=== PATIENT | male | born 1945 | race Caucasian/White ===

== ENCOUNTER 2019-10-05 10:13 | Emergency (ER) | payer MEDICARE, OTHER, SELFPAY ==
--- NOTE | ~2019-10-05 | XR_ITS ---
EXAMINATION: XR chest 2V DATE: 10/05/2019 11:02 INDICATION: Decreased breath sounds. TECHNIQUE: Frontal and lateral views of the chest were obtained. COMPARISON: Chest 2 views 08/21/2008, chest CT 08/22/2008 FINDINGS: A calcified left lung nodule is consistent with old granulomatous disease. There is mild at electasis at left lung base. No pleural effusion or pneumothorax. There are multiple old healed left rib fractures. The heart size is normal. IMPRESSION: 1. Mild atelectasis at left lung base. Reviewed, dictated and finalized at location A. IFIED FINANCIAL PLANNER
[2019-10-05 10:31] VITALS: BP 129/69; PULSE 86; RESP 20; TEMP 36.6; O2SAT 98
--- NOTE | 2019-10-05 10:38 | ED.URI ---
HPI - URI/Sore Throat General Chief Complaint: Upper Respiratory Infection Stated Complaint: cough/runny nose/body aches Time Seen by Provider: 10/05/19 10:38 Source: patient and RN notes reviewed History of Present Illness HPI Narrative: Patient is a 74-year-old male that presents the urgent care with complaints of cough, body aches, runny nose. Patient states his symptoms started last Wednesday and he has been taking a couple doses of Tylenol for the symptoms. Patient denies any known fever but states he has felt nauseous. Patient does have a history of pneumonia and states that his cough is productive cream-colored . Patient currently denies of any shortness of breath. States that he has had new intermittent chest pains . Patient states that the last episode was this morning. Patient states that there short and sharp without any radiation. No other acute complaints. No acute distress noted. Patient read the plan of care. Related Data Home Medications Medication Instructions Recorded Confirmed amlodipine-benazepril 1 cap PO DAILY 10/05/19 10/05/19 cilostazol 100 mg PO BID 10/05/19 10/05/19 insulin aspart U-100 [Novolog See Protocol SUBCUT TID 10/05/19 10/05/19 U-100 Insulin aspart] insulin glargine [Lantus U-100 33 unit SUBCUT DAILY 10/05/19 10/05/19 Insulin] latanoprost 1 drp OPHTHALMIC (EYE) DAILY 10/05/19 10/05/19 pyridostigmine bromide 60 mg PO QID 10/05/19 10/05/19 simvastatin mg 10/05/19 Allergies Allergy/AdvReac Type Severity Reaction Status Date / Time No Known Allergies Allergy Verified 10/05/19 10:26 Review of Systems Review of Systems: Narrative: CONSTITUTIONAL: Reports a fever EYES: Denies visual changes, redness, or discharge. ENT: Denies rhinorrhea, congestion, sore throat, or otalgia. CARDIOVASCULAR: Reports of intermittent left-sided chest pain without palpitations or edema RESPIRATORY: Reports a productive cough without wheezing or dyspnea GASTROINTESTINAL: Denies abdominal pain, nausea, vomiting, or diarrhea. GENITOURINARY: Denies dysuria or hematuria. SKIN: Denies rash or itching. MUSCULOSKELETAL: Denies back pain, joint pain, or myalgia. NEUROLOGIC: Denies headache, numbness, or weakness. All other systems reviewed are negative, except as documented in HPI. PMFSH Comments At the time of my signature, I reviewed and agree with the nursing past medical, surgical, social, and family history. There is no relevant family history pertinent to the patient complaint. Exam Narrative: Exam Narrative: GENERAL: This is a well-nourished, well-developed patient, appears very fatigued HEAD: normocephalic, atraumatic. EYES: PERRL. Sclera clear/white. Vision is grossly intact. EARS: External ears normal, auditory canals clear and without drainage, TMs normal without perforation. Hearing grossly intact. NOSE: External nose normal with no obvious nasal discharge, nares without redness, clear rhinorrhea. THROAT: Mucous membranes moist, posterior pharynx clear. NECK: Neck supple CARDIOVASCULAR: Regular rate and rhythm without murmurs, gallops, or rubs. RESPIRATORY: Clear to auscultation. Slightly diminished bibasilar. No wheezes, rales, or rhonchi. SKIN: warm, intact with no suspicious lesions or rash, good texture and turgor. NEURO: awake, alert, and oriented to person, place and time. There were no obvious focal neurologic abnormalities. EXTREMITIES: No clubbing, cyanosis, or edema. Course Vital Signs Vital signs: Vital Signs Temperature 97.9 F 10/05/19 10:31 Pulse Rate 86 10/05/19 10:31 Respiratory Rate 10/05/19 10:31 Blood Pressure 129/69 10/05/19 10:31 Pulse Oximetry 98 10/05/19 10:31 Temperature 97.9 F 10/05/19 10:31 Pulse Rate 86 10/05/19 10:31 Respiratory Rate 10/05/19 10:31 Blood Pressure 129/69 10/05/19 10:31 Pulse Oximetry 98 10/05/19 10:31 Reviewed Transfer Transfered to: [place] [facility]: Other (Patient was just to go via private car.)
--- NOTE | 2019-10-05 11:57 | ECG_ITS ---
Measurements Intervals [place] Rate: 88 P: 45 AL: 225 QRS: -26 QRSD: 93 T: 61 QT: 359 QTc: 436 Interpretive Statements SINUS RHYTHM WITH FIRST DEGREE AV BLOCK EARLY PRECORDIAL R/S TRANSITION BORDERLINE ST-T WAVE ABNORMALITY- LATERAL LEADS ABNORMAL ECG Electronically Signed On 10-05-2019 12:20:02 PERSONNEL MONITOR by Oh Lucas D.O.
== END 2019-10-05 11:33 | disposition short-term general hospital (02) ==
PROVIDERS: Emergency Provider Nurse Practitioner Family
DX: R07.9 Chest pain, unspecified (principal); I44.0 Atrioventricular block, first degree; E11.9 Type 2 diabetes mellitus without complications
CPT/HCPCS: 71046; 87804; 93005; 99213; G0463

== ENCOUNTER 2019-10-05 12:08 | Emergency (ER) | payer MEDICARE, OTHER, SELFPAY ==
--- NOTE | ~2019-10-05 | US_ITS ---
EXAMINATION: US venous doppler LE EXAM DATE: 10/05/2019 15:22 INDICATION: Bilateral leg swelling. TECHNIQUE: Multiple grayscale, color flow and Doppler images of the lower extremity deep venous syste ms bilaterally were obtained and reviewed. There is no prior study for comparison. FINDINGS: Right side: The right common femoral, femoral and profunda veins demonstrate normal color flow, respi ratory variation, augmentation and compressibility. Compressibility, color flow confirmed within the right popliteal, posterior tibial, peroneal, and greater saphenous veins. Left side: The left common femoral, femoral and profunda veins demonstrate normal color flow, respira tory variation, augmentation and compressibility. Compressibility, color flow confirmed within the l eft popliteal, posterior tibial, peroneal, and greater saphenous veins. IMPRESSION: 1. No lower extremity deep venous thrombosis bilaterally. Reviewed, dictated and finalized at location B. RAM EVALUATOR
[2019-10-05 12:19] VITALS: BP 107/56; PULSE 91; RESP 19; TEMP 37; O2SAT 98
--- NOTE | 2019-10-05 12:23 | ECG_ITS ---
Measurements Intervals [place] Rate: 80 P: 47 MN: 231 QRS: -13 QRSD: 80 T: 57 QT: 349 QTc: 405 Interpretive Statements SINUS RHYTHM WITH FIRST DEGREE AV BLOCK EARLY PRECORDIAL R/S TRANSITION NONSPECIFIC T-WAVE ABNORMALITY- LATERAL LEADS BASELINE ARTIFACT- I, III, AVL, V2 ABNORMAL ECG Electronically Signed On 10-05-2019 13:17:43 SECONDARY MARKET MANAGER by Oh Lucas D.O.
[2019-10-05 12:34] LABS: Basophils Absolute Auto 0.1 K/mm3 (0.0-0.1); Basophils Percent Auto 0.7 % (0.2-1.2); Eosinophils Absolute Auto 0.3 K/mm3 (0-0.3); Eosinophils Percent Auto 2.3 % (0-4.4); Hematocrit 41.3 % (42.0-52.0); Hemoglobin 13.7 g/dL (14.0-18.0); Immature Granulocyte Absolute 0.06 K/mm3 (0.00-0.031); Immature Granulocyte Percent A 0.5 % (0-0.5); Lymphocytes Absolute Auto 1.47 K/mm3 (0.9-3.2); Lymphocytes Percent Auto 12.1 % (18.3-44.2); Mean Corpuscular HGB Conc 33.2 g/dl (32-36); Mean Corpuscular Hemoglobin 29.7 pg (26-34); Mean Corpuscular Volume 89.6 fl (80-100); Mean Platelet Volume 9.7 fl (7.4-10.4); Monocytes Absolute Auto 1.2 K/mm3 (0.1-0.6); Monocytes Percent Auto 10.1 % (2.6-8.5); Neutrophils Percent Auto 74.3 % (45.5-73.1); Platelet Count Result 242 k/mm3 (150-375); Red Blood Count 4.61 M/mm3 (4.6-6.20); Red Cell Distribution Width 12.1 % (11.5-14.5); White Blood Count 12.1 K/mm3 (4.5-10.0)
[2019-10-05 12:51] LABS: Blood Urea Nitrogen 13 mg/dL (9-20); Calcium 8.7 mg/dL (8.4-10.2); Carbon Dioxide 24 mmol/L (22-30); Chloride 104 mmol/L (98-107); Estimated Glomerular Filt Rate > 60; Glucose 158 mg/dL (75-110); Potassium 4.6 mmol/L (3.4-5.0); Sodium 135 mmol/L (137-145)
[2019-10-05 14:10] VITALS: O2SAT 99
--- NOTE | 2019-10-05 14:44 | ED.URI ---
HPI - URI/Sore Throat General Chief Complaint: Upper Respiratory Infection Stated Complaint: Abnormal EKG at Urgent care Time Seen by Provider: 10/05/19 14:35 Source: patient Mode of arrival: ambulatory Limitations: no limitations History of Present Illness HPI Narrative: Pt is a 74 y/o male who presents to the ED with c/o cold like Sx for a week. He reports rhinorrhea, sore throat, and a productive cough. He also reports lt sided CP and SOB with exertion. His CP is not aggravated by anything. Pt reports lt leg swelling for several months that normally goes down when he raises it up. He denies a H/o a NC. Pt's flu test was negative at the . MD elicited complaint: cough, sore throat and rhinorrhea Onset (ago): week(s) (1) Exacerbating factors: nothing Relieving factors: nothing Associated symptoms: chest pain, shortness of breath and other (lt leg swelling) Related Data Home Medications Medication Instructions Recorded Confirmed amlodipine-benazepril 1 cap PO DAILY 10/05/19 10/05/19 cilostazol 100 mg PO BID 10/05/19 10/05/19 insulin aspart U-100 [Novolog See Protocol SUBCUT TID 10/05/19 10/05/19 U-100 Insulin aspart] insulin glargine [Lantus U-100 33 unit SUBCUT DAILY 10/05/19 10/05/19 Insulin] latanoprost 1 drp OPHTHALMIC (EYE) DAILY 10/05/19 10/05/19 pyridostigmine bromide 60 mg PO QID 10/05/19 10/05/19 simvastatin mg 10/05/19 Allergies Allergy/AdvReac Type Severity Reaction Status Date / Time No Known Allergies Allergy Verified 10/05/19 12:24 Review of Systems Review of Systems: All systems reviewed & are unremarkable except as noted in HPI and below ENT: Reports sore throat and Reports other (rhinorrhea) Cardiovascular: Cardiovascular: Reports chest pain and Reports leg edema (lt) Respiratory: Respiratory: Reports cough and Reports dyspnea on exertion PMF Past Medical History Medical History (Updated 10/05/19 @ 16:50 by Iain Redd MD) Diabetes mellitus Diabetic retinopathy Glaucoma HLD (hyperlipidemia) HTN (hypertension) Hypothyroid Myasthenia gravis Pneumonia Surgical History Surgical History (Updated 10/05/19 @ 15:19 by Kimber Bell) H/O bilateral cataract extraction H/O hand surgery History of cardiac catheterization Social History Social History (Updated 10/05/19 @ 15:19 by Kimber Bell) Smoking status: Former smoker Gender identity (if verbalized by the patient): Male Exam Narrative: Exam Narrative: GENERAL: Well-appearing, well-nourished, and in no acute distress. HEAD: Normocephalic, atraumatic. ENT: Mucous membranes moist. CHEST: Clear to auscultation. No respiratory distress. Mild anterior left chest wall pain. HEART: Regular rate and rhythm. Normal peripheral pulses. ABDOMEN: Soft, nontender, nondistended. EXTREMITIES: Normal range of motion. 2+ edema bilaterally without Homans sign. SKIN: Warm, dry, no rash. NEURO: Alert and oriented x3. Course Course Emergency Course: Patient informed of results. Pain improved with Toradol. Discharge home. Vital Signs Vital signs: Vital Signs Temperature 98.6 F 10/05/19 12:19 Pulse Rate 91 10/05/19 12:19 Respiratory Rate 19 10/05/19 12:19 Blood Pressure 107/56 L 10/05/19 12:19 Pulse Oximetry 98 10/05/19 12:19 Temperature 98.6 F 10/05/19 12:19 Pulse Rate 83 10/05/19 17:15 Respiratory Rate 12 10/05/19 17:15 Blood Pressure 128/59 L 10/05/19 17:15 Pulse Oximetry 96 10/05/19 17:15 MDM - URI/Sore Throat Lab Data Result diagrams: 10/05/19 12:29 10/05/19 12:29 Labs: Lab Results 10/05/19 10/05/19 10/05/19 Range/Units 12:29 12:29 15:55 WBC 12.1 H (4.5-10.0) K/mm3 RBC 4.61 (4.6-6.20) M/mm3 Hgb 13.7 L (14.0-18.0) g/dL Hct 41.3 L (42.0-52.0) % MCV 89.6 (80-100) fl MCH 29.7 (26-34) pg MCHC 33.2 (32-36) g/dl RDW 12.1 (11.5-14.5) % Plt Count 242 (150-375) k/mm3 MPV 9.7 (7.4-10.4) fl
[2019-10-05] MEDS: KETOROLAC 30 MG/ML VIAL (*BKC) IV PUSH (15:38)
[2019-10-05 16:23] LABS: Troponin I < 0.012 ng/mL (0.000-0.034)
[2019-10-05 17:15] VITALS: BP 128/59; PULSE 83; RESP 12; O2SAT 96
== END 2019-10-05 17:20 | disposition home or self-care (01) ==
PROVIDERS: Emergency Provider Emergency Medicine
DX: J06.9 Acute upper respiratory infection, unspecified (principal); R07.89 Other chest pain; E11.319 Type 2 diabetes mellitus with unspecified diabetic retinopathy without macular edema; H40.9 Unspecified glaucoma; I10 Essential (primary) hypertension; E78.5 Hyperlipidemia, unspecified; E03.9 Hypothyroidism, unspecified; G70.00 Myasthenia gravis without (acute) exacerbation; Z98.42 Cataract extraction status, left eye; Z98.41 Cataract extraction status, right eye; Z87.891 Personal history of nicotine dependence; Z79.4 Long term (current) use of insulin
CPT/HCPCS: 36415; 71046; 80048; 84484; 85025; 87804; 93005; 93970; 96374; 99284; J1885

== ENCOUNTER 2023-01-11 06:49 | Outpatient (CLI) | payer MEDICARE, OTHER, SELFPAY ==
[2023-01-11 08:00] LABS: Basophils Absolute Auto 0.1 K/mm3 (0.0-0.1); Basophils Percent Auto 1.2 % (0.2-1.2); Eosinophils Absolute Auto 0.4 K/mm3 (0-0.3); Eosinophils Percent Auto 4.7 % (0-4.4); Hematocrit 43.9 % (42.0-52.0); Hemoglobin 14.2 g/dL (14.0-18.0); Immature Granulocyte Absolute 0.06 K/mm3 (0.00-0.031); Immature Granulocyte Percent A 0.7 % (0-0.5); Lymphocytes Absolute Auto 2.02 K/mm3 (0.9-3.2); Lymphocytes Percent Auto 22.5 % (18.3-44.2); Mean Corpuscular HGB Conc 32.3 g/dl (32-36); Mean Corpuscular Volume 92.8 fl (80-100); Mean Platelet Volume 10.5 fl (7.4-10.4); Monocytes Absolute Auto 0.7 K/mm3 (0.1-0.6); Monocytes Percent Auto 7.6 % (2.6-8.5); Neutrophils Absolute Auto 5.7 K/mm3 (1.3-6.7); Neutrophils Percent Auto 63.3 % (45.5-73.1); Platelet Count Result 256 k/mm3 (150-375); Red Blood Count 4.73 M/mm3 (4.6-6.20); Red Cell Distribution Width 12.4 % (11.5-14.5)
[2023-01-11 08:16] LABS: Alanine Aminotransferase 18 U/L (6-50); Alkaline Phosphatase 73 U/L (38-126); Anion Gap 6 mmol/L (8-16); Aspartate Amino Transferase 23 U/L (17-59); Bilirubin,Total 0.4 mg/dL (0.2-1.3); Blood Urea Nitrogen 22 mg/dL (9-20); Calcium 8.4 mg/dL (8.4-10.2); Carbon Dioxide 24 mmol/L (22-30); Chloride 109 mmol/L (98-107); Cholesterol 139 mg/dL (0-200); Estimated Glomerular Filt Rate > 60; Glucose 133 mg/dL (65-110); HDL Direct 37 mg/dL; Potassium 4.1 mmol/L (3.4-5.0); Sodium 139 mmol/L (137-145); Triglycerides 76 mg/dL (<150)
[2023-01-11 08:27] LABS: LDL Cholesterol Direct 87 mg/dL
[2023-01-11 08:41] LABS: Hemoglobin A1C 7.2 % (<5.7)
[2023-01-11 08:46] LABS: Thyroid Stimulating Hormone 0.586 uIU/mL (0.465-4.680)
[2023-01-11 13:42] LABS: Creatinine Urine 71.7 mg/dL
[2023-01-11 13:47] LABS: MALB Creatinine Ratio 8.5 mg/g (0-30); Microalbumin Urine Random 6.1 mg/L (0-16.7)
[2023-01-14 14:33] LABS: PSA, Free 0.12 ng/mL; PSA, Total 0.5 ng/mL (<=4.0)
== END 2023-01-11 06:50 | disposition home or self-care (01) ==
LOC: ANHLAB 06:55
PROVIDERS: PCP Family Medicine; Visit Provider Family Medicine
DX: E78.2 Mixed hyperlipidemia (principal); G70.00 Myasthenia gravis without (acute) exacerbation; N40.1 Benign prostatic hyperplasia with lower urinary tract symptoms; E03.9 Hypothyroidism, unspecified; I10 Essential (primary) hypertension; E78.5 Hyperlipidemia, unspecified
CPT/HCPCS: 36415; 80053; 80061; 82043; 83036; 84153; 84154; 84443; 85025

== ENCOUNTER 2023-06-25 07:35 | Outpatient (CLI) | payer MEDICARE, OTHER, SELFPAY ==
[2023-06-25 08:44] LABS: Basophils Absolute Auto 0.1 K/mm3 (0.0-0.1); Eosinophils Absolute Auto 0.4 K/mm3 (0-0.3); Hematocrit 43.3 % (42.0-52.0); Immature Granulocyte Absolute 0.05 K/mm3 (0.00-0.031); Immature Granulocyte Percent A 0.7 % (0-0.5); Lymphocytes Absolute Auto 1.65 K/mm3 (0.9-3.2); Lymphocytes Percent Auto 23.4 % (18.3-44.2); Mean Corpuscular HGB Conc 32.3 g/dl (32-36); Mean Corpuscular Hemoglobin 29.6 pg (26-34); Mean Corpuscular Volume 91.5 fl (80-100); Monocytes Absolute Auto 0.6 K/mm3 (0.1-0.6); Monocytes Percent Auto 7.8 % (2.6-8.5); Neutrophils Absolute Auto 4.3 K/mm3 (1.3-6.7); Neutrophils Percent Auto 61.1 % (45.5-73.1); Platelet Count Result 194 k/mm3 (150-375); Red Blood Count 4.73 M/mm3 (4.6-6.20); Red Cell Distribution Width 12.4 % (11.5-14.5); White Blood Count 7.1 K/mm3 (4.5-10.0)
[2023-06-25 08:55] LABS: Alanine Aminotransferase 20 U/L (6-50); Albumin Level 4.3 g/dL (3.5-5.1); Alkaline Phosphatase 75 U/L (38-126); Anion Gap 9 mmol/L (8-16); Aspartate Amino Transferase 24 U/L (17-59); Bilirubin,Total 0.5 mg/dL (0.2-1.3); Blood Urea Nitrogen 20 mg/dL (9-20); Calcium 8.7 mg/dL (8.4-10.2); Carbon Dioxide 23 mmol/L (22-30); Chloride 110 mmol/L (98-107); Cholesterol 127 mg/dL (0-200); Estimated Glomerular Filt Rate > 60; Glucose 74 mg/dL (65-110); HDL Direct 36 mg/dL; Potassium 3.9 mmol/L (3.4-5.0); Sodium 142 mmol/L (137-145); Triglycerides 65 mg/dL (<150)
[2023-06-25 09:04] LABS: Hemoglobin A1C 7.1 % (<5.7)
[2023-06-25 09:06] LABS: LDL Cholesterol Direct 74 mg/dL
[2023-06-25 09:24] LABS: Prostate Specific Antigen 0.6 ng/mL (< OR = 4.0)
== END 2023-06-25 07:36 | disposition home or self-care (01) ==
LOC: ANHLAB 07:36
PROVIDERS: PCP Family Medicine; Visit Provider Physician Assistant
DX: E78.5 Hyperlipidemia, unspecified (principal); E11.9 Type 2 diabetes mellitus without complications; Z12.5 Encounter for screening for malignant neoplasm of prostate
CPT/HCPCS: 36415; 80053; 80061; 83036; 84153; 85025; G0103

== ENCOUNTER 2024-02-03 07:07 | Outpatient (CLI) | payer MEDICARE, OTHER, SELFPAY ==
[2024-02-03 07:46] LABS: Basophils Absolute Auto 0.1 K/mm3 (0.0-0.1); Basophils Percent Auto 0.8 % (0.2-1.2); Eosinophils Absolute Auto 0.3 K/mm3 (0-0.3); Eosinophils Percent Auto 3.5 % (0-4.4); Hematocrit 40.4 % (42.0-52.0); Hemoglobin 13.3 g/dL (14.0-18.0); Immature Granulocyte Absolute 0.03 K/mm3 (0.00-0.031); Immature Granulocyte Percent A 0.4 % (0-0.5); Lymphocytes Absolute Auto 1.56 K/mm3 (0.9-3.2); Lymphocytes Percent Auto 20.5 % (18.3-44.2); Mean Corpuscular HGB Conc 32.9 g/dl (32-36); Mean Corpuscular Hemoglobin 30.2 pg (26-34); Mean Corpuscular Volume 91.8 fl (80-100); Mean Platelet Volume 10.9 fl (7.4-10.4); Monocytes Absolute Auto 0.6 K/mm3 (0.1-0.6); Monocytes Percent Auto 7.8 % (2.6-8.5); Neutrophils Absolute Auto 5.1 K/mm3 (1.3-6.7); Platelet Count Result 200 k/mm3 (150-375); Red Cell Distribution Width 12.5 % (11.5-14.5); White Blood Count 7.6 K/mm3 (4.5-10.0)
[2024-02-03 07:57] LABS: Alanine Aminotransferase 15 U/L (6-50); Albumin Level 4.1 g/dL (3.5-5.1); Alkaline Phosphatase 81 U/L (38-126); Anion Gap 2 mmol/L (4-12); Aspartate Amino Transferase 23 U/L (17-59); Bilirubin,Total 0.5 mg/dL (0.2-1.3); Blood Urea Nitrogen 17 mg/dL (9-20); Calcium 8.6 mg/dL (8.4-10.2); Carbon Dioxide 23 mmol/L (22-30); Chloride 114 mmol/L (98-107); Cholesterol 122 mg/dL (0-200); Estimated Glomerular Filt Rate > 60; Glucose 192 mg/dL (65-110); HDL Direct 41 mg/dL; Potassium 3.9 mmol/L (3.4-5.0); Sodium 139 mmol/L (137-145); Triglycerides 64 mg/dL (<150)
[2024-02-03 08:09] LABS: LDL Cholesterol Direct 77 mg/dL
[2024-02-03 08:34] LABS: Hemoglobin A1C 8.3 % (<5.7)
[2024-02-03 10:00] LABS: Prostate Specific Antigen 0.5 ng/mL (< OR = 4.0)
== END 2024-02-03 07:08 | disposition home or self-care (01) ==
LOC: ANHLAB 07:11
PROVIDERS: PCP Family Medicine; Visit Provider Physician Assistant
DX: Z12.5 Encounter for screening for malignant neoplasm of prostate (principal); E78.2 Mixed hyperlipidemia; G70.00 Myasthenia gravis without (acute) exacerbation; E11.9 Type 2 diabetes mellitus without complications
CPT/HCPCS: 36415; 80053; 80061; 83036; 84153; 85025; G0103

== ENCOUNTER 2024-05-11 06:50 | Outpatient (CLI) | payer MEDICARE, OTHER, SELFPAY ==
[2024-05-11 07:20] LABS: Basophils Absolute Auto 0.1 K/mm3 (0.0-0.1); Eosinophils Absolute Auto 0.4 K/mm3 (0-0.3); Eosinophils Percent Auto 5.8 % (0-4.4); Hematocrit 41.8 % (42.0-52.0); Hemoglobin 13.9 g/dL (14.0-18.0); Immature Granulocyte Absolute 0.05 K/mm3 (0.00-0.031); Immature Granulocyte Percent A 0.7 % (0-0.5); Lymphocytes Absolute Auto 1.81 K/mm3 (0.9-3.2); Lymphocytes Percent Auto 24.6 % (18.3-44.2); Mean Corpuscular HGB Conc 33.3 g/dl (32-36); Mean Corpuscular Hemoglobin 30.6 pg (26-34); Mean Corpuscular Volume 92.1 fl (80-100); Mean Platelet Volume 10.8 fl (7.4-10.4); Monocytes Absolute Auto 0.7 K/mm3 (0.1-0.6); Monocytes Percent Auto 10.1 % (2.6-8.5); Neutrophils Absolute Auto 4.3 K/mm3 (1.3-6.7); Neutrophils Percent Auto 57.8 % (45.5-73.1); Platelet Count Result 194 k/mm3 (150-375); Red Blood Count 4.54 M/mm3 (4.6-6.20); Red Cell Distribution Width 12.3 % (11.5-14.5); White Blood Count 7.4 K/mm3 (4.5-10.0)
[2024-05-11 07:33] LABS: Alanine Aminotransferase 14 U/L (6-50); Albumin Level 4.1 g/dL (3.5-5.1); Alkaline Phosphatase 92 U/L (38-126); Anion Gap 5 mmol/L (4-12); Aspartate Amino Transferase 20 U/L (17-59); Bilirubin,Total 0.1 mg/dL (0.2-1.3); Blood Urea Nitrogen 22 mg/dL (9-20); Calcium 8.6 mg/dL (8.4-10.2); Carbon Dioxide 24 mmol/L (22-30); Chloride 106 mmol/L (98-107); Estimated Glomerular Filt Rate > 60; Glucose 203 mg/dL (65-110); Potassium 4.4 mmol/L (3.4-5.0); Sodium 135 mmol/L (137-145)
[2024-05-11 07:57] LABS: Hemoglobin A1C 8.8 % (<5.7)
[2024-05-11 10:14] LABS: Creatinine Urine 79.8 mg/dL
[2024-05-11 10:18] LABS: MALB Creatinine Ratio 11.7 mg/g (0-30); Microalbumin Urine Random 9.3 mg/L (0-16.7)
== END 2024-05-11 06:51 | disposition home or self-care (01) ==
PROVIDERS: PCP Family Medicine; Visit Provider Student in an Organized Health Care Education/Training Program
DX: D64.9 Anemia, unspecified (principal); I10 Essential (primary) hypertension; E11.9 Type 2 diabetes mellitus without complications
CPT/HCPCS: 36415; 80053; 82043; 83036; 85025

== ENCOUNTER 2024-10-13 13:31 | Emergency (ER) | payer MEDICARE, OTHER, SELFPAY ==
[2024-10-13 13:49] VITALS: BP 106/83; PULSE 62; RESP 16; TEMP 36.6; O2SAT 100
--- NOTE | 2024-10-13 14:15 | ED.EAR ---
HPI - Ear Problem General Chief complaint: Ear Stated complaint: CLOGGED EARS Time Seen by Provider: 10/13/24 14:15 Source: patient Mode of arrival: ambulatory Limitations: no limitations History of Present Illness HPI Narrative: 79-year-old male presented for complaint of decreased hearing out of both ears and says his ears are clogged. Says he was seen for hearing aids yesterday but was told he had wax buildup and is here for removal. Endorses occasional dizziness. Denies ear pain, tinnitus, nausea vomiting, fevers or chills. MD Complaint: ear pain Related Data Home Medications ?Medication ?Instructions ?Recorded ?Confirmed ?Last Taken ?Type amlodipine 10 mg-benazepril 20 mg 1 cap PO DAILY 10/05/19 10/13/24 10/05/19 History capsule latanoprost 0.005 % eye drops 1 drp ophthalmic (eye) DAILY 10/05/19 10/13/24 Unknown History simvastatin 40 mg tablet 40 mg PO QPM 10/05/19 10/13/24 Unknown History Allergies Allergy/AdvReac Type Severity Reaction Status Date / Time No Known Allergies Allergy Verified 10/13/24 13:46 Review of Systems Review of Systems: CONSTITUTIONAL: Denies malaise, chills, or fever. EYES: Denies visual changes, redness, or discharge. ENT: Denies rhinorrhea, congestion, sinus pain, and sore throat. Reports decreased hearing CARDIOVASCULAR: Denies chest pain, palpitations, or edema. RESPIRATORY: Denies cough or dyspnea. GASTROINTESTINAL: Denies abdominal pain, nausea, vomiting, diarrhea SKIN: Denies rash or itching. MUSCULOSKELETAL: Denies myalgia. NEUROLOGIC: Denies headache. All systems reviewed & are unremarkable except as noted in HPI and below PMFSH Past Medical History Medical History IDDM (insulin dependent diabetes mellitus) Hypothyroid Diabetes mellitus Pneumonia HTN (hypertension) HLD (hyperlipidemia) Myasthenia gravis Glaucoma Diabetic retinopathy Surgical History Surgical History H/O hand surgery History of cardiac catheterization H/O bilateral cataract extraction Social History Social History Social History: Smoking status: Former smoker Second hand tobacco smoke exposure: No Alcohol intake: current Alcohol use details: Pt drinks 2 cans of beer a month. Substance use: never Substance use type: does not use Do You Feel Safe in your Home?: Yes Lack of Transportation: No Lack of Food: Never True Current Housing: I Have Housing Concerned About Future Housing: No Difficulty Paying Gas/Electric Bills: No Difficulty Paying for Meds: No Currently Unemployed: YES Education: Decline to Answer Difficulty w/ Childcare or Family Care: No Living arrangements: with family Occupation/Education: retired Gender identity (if verbalized by the patient): Male Sexual Orientation (if Verbalized by the Patient): Straight or Heterosexual Comments At time of signature, agree with nursing past medical, surgical, social and family history. There is no relevant family history pertinent to the presenting complaint Exam Narrative: GENERAL: Well-appearing HEAD: Normocephalic EYES: PERRLA, conjunctivae clear ENT: Nares clear. Mucous membranes moist. Bilateral TMs unable to visualize due to excess cerumen no tragal tenderness. NECK: Supple. No lymphadenopathy CHEST: Clear to auscultation, breath sounds equal. No wheezing, rhonchi, rales, or stridor. No respiratory distress, speaks in full sentences. HEART: Regular rate and rhythm. No murmur heard. SKIN: Warm, dry, no rash. NEURO: Alert and oriented x3. PSYCH: Normal mood and affect Course Course Emergency Course: Patient is aware of diagnosis, understands and agrees to treatment plan. Anticipatory guidance given. Patient agrees to follow-up as directed and is aware of reasons to seek care at the emergency department. Portions of this record may have been created with voice recognition software Level of Care: Express Care Visit Vital Signs Vital signs: Vital Signs Temperature 97.8 F 10/13/24 13:49 Pulse Rate 62 10/13/24 13:49 Respiratory Rate 16 10/13/24 13:49 Blood Pressure 106/83 10/13/24 13:49 Pulse Oximetry 100 10/13/24 13:49 Temperature 97.8 F 10/13/24 13:49 Pulse Rate 62 10/13/24 13:49 Respiratory Rate 16 10/13/24 13:49 Blood Pressure 106/83 10/13/24 13:49 Pulse Oximetry 100 10/13/24 13:49 Reviewed Procedures Ear Wax Removal Both Ears: Ear Wax Removal Date: 10/13/24 Cerumenolytic Used: other (Warm water and hydrogen peroxide) Results: Re-examined: cerumen removed completely TM Examination: TM(s) intact, normal appearance Ear Canal Exam: atraumatic Patient Tolerated Procedure: well and no complications Technique: ear canal irrigated and ear canal curetted Additional Comments: Large amount of impacted cerumen removed from both ears, patient reported improvement in hearing out of both ears. Medical Decision Making MDM Narrative Medical decision making narrative: Advised supportive measures and signs/symptoms to go to the ER. Patient is appropriate for outpatient treatment and follow-up. Differential Diagnosis Differential Diagnosis: Coronavirus, strep pharyngitis, allergic rhinitis, upper respiratory tract infection, sinusitis, rhinosinusitis, nasopharyngitis, viral pharyngitis, otitis media, otitis externa, eustachian tube dysfunction, foreign body, cerumen impaction. Vital Signs Vital Signs: Vital Signs Temperature 97.8 F 10/13/24 13:49 Pulse Rate 62 10/13/24 13:49 Respiratory Rate 16 10/13/24 13:49 Blood Pressure 106/83 10/13/24 13:49 Pulse Oximetry 100 10/13/24 13:49 Temperature 97.8 F 10/13/24 13:49 Pulse Rate 62 10/13/24 13:49 Respiratory Rate 16 10/13/24 13:49 Blood Pressure 106/83 10/13/24 13:49 Pulse Oximetry 100 10/13/24 13:49 Discharge Plan Discharge Clinical Impression: Bilateral impacted cerumen Patient Disposition: Home, Self-Care Condition: Stable Instructions: How to Use Ear Drops (ED) Additional Instructions: Please use a earwax softening agent such as [id number] Debrox or a mixture of 1 part hydrogen peroxide in 1 part warm water several times weekly to keep your earwax soft and prevent further impaction. Please follow-up with your primary care doctor if you develop new symptoms. If you have urgent concerns please go to the ER. Patient Language: Citizen Of [place] Prescriptions: No Action latanoprost 0.005 % drops 1 drp ophthalmic (eye) DAILY simvastatin 40 mg tablet 40 mg PO QPM amlodipine-benazepril 10-20 mg capsule 1 cap PO DAILY pyridostigmine bromide 60 mg tablet See Rx Instructions .ROUTE .COMPLEX Qty: 360 4RF Dose Instruction: Take 1 tablet by mouth 4 times daily Rx Instructions: Take 1 tablet by mouth 4 times daily (DME) insulin syringe-needle U-100 [BD Insulin Syringe Ultra-Fine] 0.3 mL 31 gauge x 5/16 syringe See Rx Instructions .Route Qty: 100 0RF Rx Instructions: As directed (DME) FreeStyle Idalia 3 Plus Sensor Device See Rx Instructions .Route Qty: 1 0RF Rx Instructions: As directed insulin glargine [Basaglar KwikPen U-100 Insulin] 100 unit/mL (3 mL) insulin pen 38 unit subcut .COMPLEX 30 Days Qty: 22.8 3RF Rx Instructions: Administer 45 units SQ in AM and 38 units subcutaneously PM; Follow-up/Referrals: Jose Juan Teixeira MD [Primary Care Provider] - Time of Disposition: 15:04
== END 2024-10-13 15:09 | disposition home or self-care (01) ==
PROVIDERS: Emergency Provider Nurse Practitioner Family; PCP Family Medicine
DX: H61.23 Impacted cerumen, bilateral (principal); E11.9 Type 2 diabetes mellitus without complications; E03.9 Hypothyroidism, unspecified; E78.5 Hyperlipidemia, unspecified; I10 Essential (primary) hypertension; Z79.899 Other long term (current) drug therapy; Z87.891 Personal history of nicotine dependence
CPT/HCPCS: 69209; 99212; G0463

== ENCOUNTER 2025-01-27 08:13 | Outpatient (CLI) | payer MEDICARE, OTHER, SELFPAY ==
[2025-01-27 11:07] LABS: Cholesterol 112 mg/dL (0-200); HDL Direct 34 mg/dL; Triglycerides 65 mg/dL (<150)
[2025-01-27 11:18] LABS: LDL Cholesterol Direct 55 mg/dL
[2025-01-27 11:39] LABS: Prostate Specific Antigen 0.5 ng/mL (< OR = 4.0)
== END 2025-01-27 08:14 | disposition home or self-care (01) ==
PROVIDERS: PCP Family Medicine; Visit Provider Student in an Organized Health Care Education/Training Program
DX: E78.5 Hyperlipidemia, unspecified (principal); Z12.5 Encounter for screening for malignant neoplasm of prostate
CPT/HCPCS: 36415; 80061; 84153; G0103

== ENCOUNTER 2025-02-06 09:35 | Outpatient (CLI) | payer MEDICARE, OTHER, SELFPAY ==
--- OUTSIDE RECORDS SUMMARY | 2025-02-06 09:49 | XMS_ITS | Continuity of Care Document ---
Author Name [facility] Organization [facility] Care Team Providers Care Production Utility Worker Name Role Phone DOD-MO Unavailable Unavailable Immunizations Combined list of available immunizations from the Department of Defense and Veterans Affairs facilities. Immunization Series Date Given Administered By Site Reaction Lot Number CVX Code Drug Cost Report Clerk Status Comments Source INFLUENZA, UNSPECIFIED FORMULATION 2014 88 complet ed [employer] MDSS/SG S R Encounters Combined list of: 1) Encounters from Department of Veterans Affairs facilities going backup to the last 18 months, not all VA inpatient encounters are included; 2) Encounters from the Department of Defense facilities going backup to 280 months. Location Location Details Encounter Type Encounter Number Reason For Visit Attending Provider ADM Date DC Date Status Disposition Source [facility] Outpatient Encounter [id number] 07/29 [facility] Bryson
[2025-02-06 10:07] LABS: Hematocrit 40.7 % (42.0-52.0); Hemoglobin 13.0 g/dL (14.0-18.0); Immature Granulocyte Percent A 0.6 % (0-0.5); Lymphocytes Absolute Auto 1.63 K/mm3 (0.9-3.2); Mean Corpuscular HGB Conc 31.9 g/dl (32-36); Mean Corpuscular Hemoglobin 29.3 pg (26-34); Mean Corpuscular Volume 91.7 fl (80-100); Nucleated Red Blood Cells Absolute Auto 0.000 K/mm3 (0.0-0.012); Nucleated Red Blood Cells Perc 0.0 % (0.0-0.2); Platelet Count Result 216 k/mm3 (150-375); Red Blood Count 4.44 M/mm3 (4.6-6.20); White Blood Count 6.8 K/mm3 (4.5-10.0)
[2025-02-06 10:26] LABS: Alanine Aminotransferase 17 U/L (6-50); Albumin Level 4.0 g/dL (3.5-5.1); Alkaline Phosphatase 64 U/L (38-126); Anion Gap 7 mmol/L (4-12); Aspartate Amino Transferase 25 U/L (17-59); Bilirubin,Total 0.3 mg/dL (0.2-1.3); Blood Urea Nitrogen 20 mg/dL (9-20); Calcium 8.7 mg/dL (8.4-10.2); Carbon Dioxide 24 mmol/L (22-30); Chloride 109 mmol/L (98-107); Estimated Glomerular Filt Rate > 60; Glucose 168 mg/dL (65-110); Potassium 4.6 mmol/L (3.4-5.0); Sodium 140 mmol/L (137-145); Total Protein 7.1 g/dL (6.3-8.2)
[2025-02-06 10:48] LABS: Hemoglobin A1C. 8.3 % (<5.7)
[2025-02-06 11:33] LABS: Vitamin B12. 459.0 pg/mL (239-931)
[2025-02-08 19:39] LABS: Methylmalonic Acid. 128 nmol/L (69-390)
[2025-02-10 15:43] LABS: Vitamin D 1,25 (OH)2 Total 34 pg/mL (18-72); Vitamin D2 1,25 (OH)2 <8 pg/mL; Vitamin D3 1,25 (OH)2 34 pg/mL
== END 2025-02-06 09:36 | disposition home or self-care (01) ==
PROVIDERS: PCP Family Medicine; Visit Provider Psychiatry & Neurology Neurology
DX: E11.9 Type 2 diabetes mellitus without complications (principal); E55.9 Vitamin D deficiency, unspecified; G70.00 Myasthenia gravis without (acute) exacerbation
CPT/HCPCS: 36415; 80053; 82607; 82652; 82746; 83036; 83921; 85025; 86043

== ENCOUNTER 2025-05-09 11:12 | Outpatient (CLI) | payer MEDICARE, OTHER, SELFPAY ==
--- OUTSIDE RECORDS SUMMARY | 2000-06-16 11:30 | XMS_ITS | Continuity of Care Document ---
Author Organization [facility] Address [address] [place] [address] Exec utive [facility] [address] [place] [address] Phone Care Team Providers Care Scissors Sharpener Name Role Phone Tarik Burch Unavailable Unavailable Advance Directives Directive Yes / No Effective Date File Name No Information Encounters Encounter Description Practice Location Reason(s) For Visit Diagnoses Date Provider Providers Copied on Encounter [facility], [id number] [place] [address] [address], [place], [place], [id number], [place] tel:[phone] [facility] No Information 8-200 0 Poornimasy Edward. [address] , [address], [place], [address], [place]. tel:[phone] Family History Family Member Type Diagnosis Age At Onset No Information Payers Payer name Insurance type Covered republican ID Authoriza tion(s) No Information Social History Type Description Quantity Date Captured Comments Sex Male Smoking Status No Information Chief Complaint And Reason For Visit No Information Reason For Referral Reason For Referral No Information History Of Present Illness Encounter Date Complaint History Of Prese nt Illness No Information Functional Status Date Functional Assessmen t No Information Instructions Date Instruction Additional Infor mation No Information Assessments Type Assessment Date No Information Patient Care Teams Name Effective Dates (start - stop) Status Members No Information
--- OUTSIDE RECORDS SUMMARY | 2015-12-10 04:00 | XMS_ITS | Continuity of Care Document ---
Author Organization [facility] Address [address] [facility] [place] [address] [place] [phone] Phone Care Team Providers Care Risk Assessment Analyst Name Role Phone Jose Juan Sotelo MD Unavailable Unavailable Allergies, Adverse Reactions, Alerts Substance Reaction Status Criticality No Known Allergies Active No Inform ation Medications Medication Instructions Dosage Effective Dates (start - stop) Status Comments Novolog 100 unit/mL subcutaneous solution inject by subcutaneous route per prescriber's instructions. Insulin dosing requires individualization. 0.00 - Active KETOROLAC TROMETHAMINE (unknown strength) 1 drop into right eye 4 times a day Not Available - Active amlodipine 10 mg-benazepril 20 mg capsule take 1 capsule by oral route every day 1.00 capsule - Active Lantus 100 unit/mL subcutaneous solution inject by subcutaneous route as per insulin protocol 0.00 - Active latanoprost 0.005 % eye drops instill 1 drop by ophthalmic route every day into affected eye(s) in the evening 1.00 drop - Active prednisolone 1% eye drops OPHTHALMIC DROPS 1 drop into the right eye 4 times a day - Active pyridostigmine bromide 60 mg tablet take 1 tablet by oral route 4 times every day 60 MG - Active simvastatin 20 mg tablet take 1 tablet by oral route every day in the evening 20 MG - Active Procedures Procedure Date After Cataract Laser Surgery No Charge Refraction Eye Exam, New Patient Advance Directives Directive Yes / No Effective Date File Name No Information Encounters Encounter Description Practice Location Reason(s) For Visit Diagnoses Date Provider Providers Copied on Encounter [facility], [address], [place], [place], [id number], tel:[phone] [facility] blurry vision (chief complaint) Other secondary cataract, left eyePseudophak ia of both eyes 3-201 6 Deepak Manzano. [address] [facility], [address], [place], [place], [address], [place]. tel:[phone] Referring Provider: Dandy Jha OD, [address] [facility], [place], [address]. tel:[phone] [facility], [address], [place], [place], [address], tel:[phone] [facility] No Information 6 Nancy Thomas. [address], [address], [place], [place], [address], [place]. tel:[phone] Family History Family Member Type Diagnosis Age At Onset No Information Payers Payer name Insurance type Covered libertarian ID Authoriza tishahab(s) [facility] Mdcr Adv CI [id number] Social History Type Description Quantity Date Captured Comments Alcohol Use Details Unknown Caffeine Use Details Unknown Tobacco Use Status No Information Smoking Status No Information Sex Male Chief Complaint And Reason For Visit From encounter dated '12/10/2015 09:00'. blurry vision (chief complaint). Description: The 70 year old male presents for a YAG PC evaluationou. Patient c/o blurry vision ou. Patient c/o a film over OU. Patient is a diabetic and BS was 140 this am. Patient uses Latanoprost qhs ou and PRED and Keroroloc qid OD Dr. Rush. Reason For Referral Reason For Referral No Information History Of Present Illness Encounter Date Complaint History Of Prese nt Illness blurry vision The 70 year old male presents for a YAG PC evaluation ou. Patient c/o blurry vision ou. Patient c/o a film over OU. Patient is a diabetic and BS was 140 this am. Patient uses Latanoprost qhs ou and PRED and Keroroloc qid OD Dr. Rush. Functional Status Date Functional Assessmen t No Information Instructions Date Instruction Additional Infor luke Impression/Plan - Po sterior Capsular Opacification OS accounts for patient's complaints. Diagnosis discussed in detail. Yag Laser treatment, risks and benefits explained and understood by patient. Advised patient to call with new onset of floaters, flashes of light or a veil covering part of the vision. Patient elects to proceed with Yag Laser Capsulotomy OS today. Consent was obtained. Patient to return in 2-4 weeks for Yag PO OS with Dr. Jha. Follow up - 2-4 week Yag PC PO OS with Dr. Jha Assessments Type Assessment Date assessment Other secondary cataract, left e ye assessment Pseudophakia of both eyes Patient Care Teams Name Effective Dates (start - stop) Status Members No Information
--- OUTSIDE RECORDS SUMMARY | 2025-05-09 11:57 | XMS_ITS | Clinical Summary ---
Author Organization [facility] Address [address] [place] [id number] Care Team Providers Care Machinist Supervisor Name Role Phone Unavailable Primary Care Provider Unavailabl e Social History Tobacco Use Types Packs/Day Years Used Date Smoking Tobacco: Never Assessed Sex and Gender Information Value Date Recorded Sex Assigned at Not on file Legal Sex Male 7:13 PM CDT Gender Identity Not on file Sexual Orientation Not on file Plan of Treatment Health Maintenance Due Date Last Done Comments Hepatitis C 1963 DTaP, Tdap and Td Vaccines ( 1 - Tdap) 1965 Pneumococcal Vaccine: 50+ Ye ars (1 of 1 - PCV) 1996 Zoster Vaccines (1 of 2) 1996 RSV Immunization or 60+ Years (1 - 1-dose 75+ series) 2021 COVID-19 Vaccine ( - 2023-2 5 season) 2025 Meningococcal B Vaccine Aged Out No l onger eligible based on patient's age to complete this topic Meningococcal Vaccine Aged Out No cayetano audrey eligible based on patient's age to complete this topic RSV Immunizations Under 20 Months Aged Out No longer eligible based on patient's age to complete this topic
[2025-05-09 12:00] LABS: Alanine Aminotransferase 20 U/L (6-50); Albumin Level 4.0 g/dL (3.5-5.1); Alkaline Phosphatase 101 U/L (38-126); Anion Gap 7 mmol/L (4-12); Aspartate Amino Transferase 24 U/L (17-59); Bilirubin,Total 0.5 mg/dL (0.2-1.3); Blood Urea Nitrogen 22 mg/dL (9-20); Calcium 8.5 mg/dL (8.4-10.2); Carbon Dioxide 22 mmol/L (22-30); Chloride 105 mmol/L (98-107); Estimated Glomerular Filt Rate > 60; Glucose 352 mg/dL (65-110); Potassium 4.9 mmol/L (3.4-5.0); Sodium 134 mmol/L (137-145); Total Protein 7.1 g/dL (6.3-8.2)
[2025-05-09 12:08] LABS: MALB Creatinine Ratio < 15.2 mg/g (0-30)
[2025-05-09 12:12] LABS: Hemoglobin A1C 7.7 % (<5.7)
== END 2025-05-09 11:13 | disposition home or self-care (01) ==
PROVIDERS: PCP Family Medicine; Visit Provider Student in an Organized Health Care Education/Training Program
DX: E11.9 Type 2 diabetes mellitus without complications (principal); I10 Essential (primary) hypertension
CPT/HCPCS: 36415; 80053; 82043; 83036

== ENCOUNTER 2025-05-18 10:30 | Outpatient (RCR) | payer MEDICARE, OTHER, SELFPAY | END 2025-05-22 06:20 | disposition home or self-care (01) | LOC: ANHDMC 10:30 | PROVIDERS: PCP Family Medicine; Visit Provider Student in an Organized Health Care Education/Training Program | DX: E11.9 Type 2 diabetes mellitus without complications (principal); Z71.3 Dietary counseling and surveillance | CPT/HCPCS: G0108 ==